=== PATIENT | female | born 1990 | race Caucasian/White ===

== ENCOUNTER 2017-01-25 18:16 | Emergency (ER) | payer BC, OTHER ==
[~2017-01-25] VITALS: Ht 160 cm; Wt 64.0 kg
[~2017-01-25 18:16] MED LIST: ADVIL
[2017-01-25 18:32] VITALS: Ht 160 cm; Wt 64.0 kg
[2017-01-25] MEDS ORDERED: FAMOTIDINE 20 MG TAB PO STA (20:49)
--- NOTE | 2017-01-25 20:58 | ERD ---
ER Documentation Chief Complaint Date/Time DATE: 01/25/17 TIME: 20:55 Chief Complaint LUQ pain that started 3 days ago and worsening since yesterday HPI This is a 26-year-old female presenting to the emergency department for epigastric pain. Patient states she has had epigastric pain 1 month that is worsened over the past 2 days. Patient denies any nausea, vomiting or diarrhea. No constipation. No aggravating or relieving factors. Patient describes pain as a pinching sensation. Pain does not radiate. No fevers or chills. No dysuria, hematuria, urinary frequency or urinary urgency. No vaginal discharge. Last menstrual period January 01, 2017. Patient took Advil at home without relief of symptoms. Patient denies ever having this pain before. No recent travel or sick contacts. ROS All systems reviewed and are negative except as per history of present illness. Medications Home Meds Active Scripts Omeprazole* (Omeprazole*) 20 Mg Capsule., 20 MG PO TISH, #14 CAP Prov:MARIA GUADALUPE COLE NP 01/25/17 Reported Medications Advil 10/22/10 Allergies Allergies: Coded Allergies: No Known Allergies (Verified Allergy, Mild, 10/22/10) PMhx/Soc Medical and Surgical Hx: pt denies Medical Hx, pt denies Surgical Hx History of Surgery: No Anesthesia Reaction: No Hx Neurological Disorder: No Hx Respiratory Disorders: No Hx Cardiac Disorders: No Hx Psychiatric Problems: No Hx Miscellaneous Medical Probl: No Hx Alcohol Use: Yes (social) Hx Substance Use: No Hx Tobacco Use: No Smoking Status: Never smoker Physical Exam Vitals Vital Signs Date Time Temp Pulse Resp B/P Pulse Ox O2 Delivery O2 Flow Rate FiO2 01/25/17 18:32 99.4 66 16 143/73 100 Physical Exam Const: alert, non ill appearing Head: Atraumatic Eyes: Normal Conjunctiva ENT: Normal External Ears, Nose and Mouth. Neck: Full range of motion..~ No meningismus. Resp: Clear to auscultation bilaterally. no wheezing, rhonchi or crackles Cardio: Regular rate and rhythm, no murmurs Abd: Soft, non tender, non distended. Normal bowel sounds. negative Abca's sign. No McBurney's point tenderness. No rebound tenderness. No suprapubic tenderness. Skin: No petechiae or rashes Back: No midline or flank tenderness Ext: No cyanosis, or edema Neur: Awake and alert Psych: Normal Mood and Affect Result Diagram: 01/25/17205701/25/172057 Results 24 hrs Laboratory Tests Test 01/25/17 20:58 01/25/17 21:14 White Blood Count 6.410^3/ul Red Blood Count 4.7710^6/ul Hemoglobin 15.2g/dl Hematocrit 42.6% Mean Corpuscular Volume 89.3fl Mean Corpuscular Hemoglobin 31.9pg Mean Corpuscular Hemoglobin Concent 35.7g/dl Red Cell Distribution Width 13.1% Platelet Count 99120^3/UL Mean Platelet Volume 9.5fl Neutrophils % 45.8% Lymphocytes % 46.4% Monocytes % 6.5% Eosinophils % 0.8% Basophils % 0.3% Nucleated Red Blood Cells % 0.0/100WBC Neutrophils # 3.010^3/ul Lymphocytes # 3.010^3/ul Monocytes # 0.410^3/ul Eosinophils # 0.110^3/ul Basophils # 0.010^3/ul Nucleated Red Blood Cells # 0.010^3/ul Sodium Level 140mmol/L Potassium Level 4.3mmol/L Chloride Level 104mmol/L Carbon Dioxide Level 27mmol/L Anion Gap 13 Blood Urea Nitrogen 14mg/dl Creatinine 0.68mg/dl Glucose Level 99mg/dl Calcium Level 9.4mg/dl Total Bilirubin 0.7mg/dl Direct Bilirubin 0.00mg/dl Indirect Bilirubin 0.7mg/dl Aspartate Amino Transf (AST/SGOT) 30IU/L Alanine Aminotransferase (ALT/SGPT) 34IU/L Alkaline Phosphatase 88IU/L Total Protein 8.5g/dl Albumin 5.2g/dl Globulin 3.30g/dl Albumin/Globulin Ratio 1.57 Lipase 82U/L Bedside Urine pH (LAB) 7.0 Bedside Urine Protein (LAB) Negative Bedside Urine Glucose (UA) Negative Bedside Urine Ketones (LAB) Negative Bedside Urine Blood Negative Bedside Urine Nitrite (LAB) Negative Bedside Urine Leukocyte Esterase (L Negative Current Medications Medications (Trade) Dose Ordered Sig/Max Route PRN Reason Start Time Stop Time Status Last Admin Dose Admin Famotidine (Pepcid) 20 mg ONCE STAT PO 01/25/17 20:49 01/25/17 20:51 DC 01/25/17 21:00 Miscellaneous Medication (Gi Cocktail (2)) 40 ml ONCE ONCE PO 01/25/17 21:00 01/25/17 21:01 DC 01/25/17 21:00 Procedures/MDM Patient: DANIAL JOHN : 1990 Age: 26 Sex: F MR #: [id number] DOS: 01/25/172048 Ordering MD: MARIA GUADALUPE COLE NP Location: [facility] Room/Bed: PROCEDURE: US Abdomen. CLINICAL INDICATION: abdominal pain TECHNIQUE: Multiple real-time images were acquired of the patient's right upper quadrant abdomen and retroperitoneum utilizing a high resolution transducer. COMPARISON: None FINDINGS: The liver demonstrates normal echogenicity. The liver is normal in size and no focal solid lesions are seen. The liver measures 15 cm in length. The portal vein is patent with normal direction of flow. No intrahepatic biliary dilatation is seen. The gallbladder is partially contracted. No gallstones are identified within the gallbladder. There is no pericholecystic fluid or gallbladder wall thickening. The common bile duct measures 3 mm in maximal dimension. The visualized portions of the pancreas are unremarkable. The tail of the pancreas is not seen. No free fluid is identified. The right kidney is normal in size, and demonstrate normal echogenicity and cortical thickness. The right kidney measures 10.7 cm in long dimension. There is no evidence of hydronephrosis. There are no kidney stones. RPTAT: AA IMPRESSION: Unremarkable right upper quadrant abdominal ultrasound. Partially contracted gallbladder. No evidence of gallstones. MDM: 26-year-old female presents emergency department for epigastric pain 1 month that is worsened since yesterday. Upon arrival, patient has no fever. Vital signs are stable. Patient given Pepcid and GI cocktail by mouth. CBC, CMP and lipase were drawn. Labs are unremarkable. No elevated white blood cell count. Normal liver enzymes and lipase. Upon reassessment, patient states pain has improved significantly. Denies any nausea or pain. Ultrasound gallbladder reviewed by radiologist as unremarkable right upper quadrant abdominal ultrasound. Partially contracted gallbladder. No evidence of gallstones. Differential diagnosis includes but not limited to acute NC, pancreatitis, peptic ulcer disease, GERD, gastritis and gastroparesis and functional dyspepsia. I doubt acute NC due to patient's normal vital signs, patient denies chest pain , shortness of breath, difficulty breathing or heart palpitations. I doubt pancreatitis due to patient's normal lab results. Patient is appropriate for outpatient management and will be discharged with prescription for omeprazole. Patient instructed to follow-up with primary care provider in the next 2-3 days for reassessment. Return to ED for any high fever , chest pain, difficulty breathing, shortness breath, wheezing, vomiting, diarrhea, abdominal pain or any new or worsening symptoms. Patient verbalizes understanding. All questions answered at discharge. Departure Diagnosis: Primary Impression: Abdominal pain Abdominal location: epigastric Qualified Code: R10.13 - Epigastric pain Condition: Stable MARIA GUADALUPE COLE NP Jan 25, 2017 20:58
[2017-01-25] MEDS ORDERED: LIDOCAINE/MYLANTA 40 ML BTL PO ONE (21:00)
[2017-01-25 21:11] LABS: URINE BLOOD (Dip) POC Negative (NEGATIVE)
[2017-01-25 21:13] LABS: ADD SCAN DIFF NO
[2017-01-25 21:15] LABS: BASOPHILS % 0.3 % (0.0-2.0); EOSINOPHILS # 0.1 10^3/ul (0.0-0.5); EOSINOPHILS % 0.8 % (0.0-7.0); HEMATOCRIT 42.6 % (37.0-47.0); HEMOGLOBIN 15.2 g/dl (12.0-16.0); LYMPHOCYTES % 46.4 % (15.0-51.0); MEAN CORPUSCULAR HEMOGLOBIN 31.9 pg (29.0-33.0); MEAN CORPUSCULAR HGB CONC 35.7 g/dl (32.0-37.0); MEAN CORPUSCULAR VOLUME 89.3 fl (82.0-101.0); MEAN PLATELET VOLUME 9.5 fl (7.4-10.4); MONOCYTE # 0.4 10^3/ul (0.3-0.9); MONOCYTES % 6.5 % (0.0-11.0); NEUTROPHILS % 45.8 % (39.0-77.0); PLATELET COUNT 256 10^3/UL (140-415); RED BLOOD COUNT 4.77 10^6/ul (4.20-5.40); RED CELL DISTRIBUTION WIDTH 13.1 % (11.5-14.5); WHITE BLOOD COUNT 6.4 10^3/ul (4.8-10.8)
[2017-01-25 21:30] LABS: ALBUMIN 5.2 g/dl (3.3-4.9); ALBUMIN/GLOBULIN RATIO 1.57; BILIRUBIN,INDIRECT 0.7 mg/dl (0-1.1); BILIRUBIN,TOTAL 0.7 mg/dl (0.2-1.3); CALCIUM 9.4 mg/dl (8.4-10.2); CREATININE 0.68 mg/dl (0.44-1.00); POTASSIUM 4.3 mmol/L (3.5-5.1); TOTAL PROTEIN 8.5 g/dl (6.1-8.1)
--- NOTE | 2017-01-25 21:40 | RADRPT ---
PROCEDURE: US Abdomen. CLINICAL INDICATION: abdominal pain TECHNIQUE: Multiple real-time images were acquired of the patient's right upper quadrant abdomen a nd retroperitoneum utilizing a high resolution transducer. COMPARISON: None FINDINGS: The liver demonstrates normal echogenicity. The liver is normal in size and no focal solid lesions are seen. The liver measures 15 cm in length. The portal vein is patent with normal direction of chip w. No intrahepatic biliary dilatation is seen. The gallbladder is partially contracted. No gallstones are identified within the gallbladder. Ther e is no pericholecystic fluid or gallbladder wall thickening. The common bile duct measures 3 mm in maximal dimension. The visualized portions of the pancreas are unremarkable. The tail of the pancreas is not seen. No free fluid is identified. The right kidney is normal in size, and demonstrate normal echogenicity and cortical thickness. The right kidney measures 10.7 cm in long dimension. There is no evidence of hydronephrosis. There are no kidney stones. RPTAT: AA IMPRESSION: Unremarkable right upper quadrant abdominal ultrasound. Partially contracted gallbladder. No evidence of gallstones. .Osmar Natarajan MD, MD Date Time Electronically viewed and signed by .Osmar Natarajan MD, on 01/25/2017 21:40 .S/
[2017-01-25] MEDS ORDERED: OMEP20CA16 PO (22:47)
[2017-01-25 23:35] VITALS: BP 125/81; PULSE 65; RESP 17
== END 2017-01-25 23:36 | disposition home or self-care (01) ==
LOC: FTE 18:16
DX: R10.13 Epigastric pain (principal)
CPT/HCPCS: 76705; 80053; 81003; 83690; 85025; Z7610